=== PATIENT | female | born 1965 | race Caucasian/White ===

== ENCOUNTER 2016-04-23 12:20 | Emergency (ER) | payer OTHER ==
[~2016-04-23] VITALS: Ht 172.7 cm; Wt 86.0 kg
[2016-04-23 12:35] VITALS: BP 146/71; PULSE 68; RESP 16; TEMP 97.6; O2SAT 100
[2016-04-23] MEDS ORDERED: LORazepam 2 MG/ML VIAL IV PUSH ONE (12:45)
[2016-04-23] MEDS ORDERED: SODIUM CHLORIDE 0.9% FLUSH 5 ML FLUSH IVF PRN (12:45)
[2016-04-23 12:50] LABS: AUTOMATED NEUTROPHIL # 3.5 TH/MM3 (1.8-7.7); BASOPHIL # 0.1 TH/MM3 (0-0.2); BASOPHIL % 1.6 % (0.0-2.0); EOSINOPHIL # 0.1 TH/MM3 (0-0.4); EOSINOPHIL % 1.7 % (0.0-4.0); HEMATOCRIT 41.3 % (35.0-46.0); HEMO FLAGS DIFF FINAL; LYMPH % 39.4 % (9.0-44.0); LYMPHOCYTE # 2.7 TH/MM3 (1.0-4.8); MEAN CELL VOLUME 92.1 FL (80.0-100.0); MEAN CORPUSCULAR HGB CONC 34.7 % (32.0-36.0); MONO % 7.7 % (0.0-8.0); NEUT % 49.6 % (16.0-70.0); PLATELET COUNT 272 TH/MM3 (150-450); RED BLOOD COUNT 4.48 MIL/MM3 (4.00-5.30); RED CELL DISTRIBUTION WIDTH 11.9 % (11.6-17.2); WHITE BLOOD COUNT 6.9 TH/MM3 (4.0-11.0)
[2016-04-23] MEDS ORDERED: LEVO25TA4 PO (12:54)
[2016-04-23] MEDS ORDERED: BUPR150XL PO (12:54)
--- NOTE | 2016-04-23 12:56 | PD ---
HPI . Dizziness and confusion Chief Complaint: Neuro complaint Time Seen by Provider: 12:32 Travel History International Travel<30 days: No Contact w/Intl Traveler<30days: No Traveled to known affect area: No History of Present Illness HPI The patient presents with dizziness and confusion that started sometime between 9:30 and 10:15 AM. She states that she doesn't feel she can think straight. She states that her fingers of her left hand are tingly and she feels like she is not breathing appropriately. [facility] Past Medical History Depression: Yes Diminished Hearing: No Thyroid Disease: Yes Tetanus Vaccination: > 5 Years Influenza Vaccination: Yes ?: Not Past Surgical History Appendectomy: Yes Cholecystectomy: Yes Social History Alcohol Use: Yes (2 BEERS DAILY) Tobacco Use: Yes (1 PPD) Substance Use: No Allergies-Medications (Allergen,Severity, Reaction): Coded Allergies: No Known Allergies (Verified , 04/23/16) Reported Meds & Prescriptions Reported Meds & Active Scripts Active Reported Wellbutrin Xl 24 HR (Bupropion HCl) 150 Mg Tab 150 Mg PO DAILY Levothyroxine (Levothyroxine Sodium) 25 Mcg Tab 25 Mcg PO DAILY Review of Systems Except as stated in HPI: all other systems reviewed are Neg HENT: Positive: Lightheadedness Respiratory: Positive: Shortness of Breath Neurologic: Positive: Dizziness, Change in Mentation, Paresthesia, No: Focal Abnormalities Physical Exam Narrative GENERAL: Patient is very anxious appearing. She is tearful. SKIN: Warm and dry. HEAD: Atraumatic. Normocephalic. EYES: Pupils equal and round. Extraocular movement is intact. ENT: No nasal bleeding or discharge. Mucous membranes pink and moist. NECK: Trachea midline. Neck is supple. CARDIOVASCULAR: Regular rate and rhythm. Heart sounds are normal. RESPIRATORY: No accessory muscle use. Lungs are clear with full air movement throughout. GASTROINTESTINAL: Abdomen soft, non-tender, nondistended. MUSCULOSKELETAL: No obvious deformities. No edema. NEUROLOGICAL: Awake and alert. No facial droop. Motor grossly within normal limits. Negative Babinski. No clonus. Normal speech. PSYCHIATRIC: Anxious appearing. Data Data Last Documented VS Vital Signs Date Time Temp Pulse Resp B/P Pulse Ox O2 Delivery O2 Flow Rate FiO2 04/23/16 14:13 84 16 112/64 99 Room Air 04/23/16 12:35 97.6 Orders Electrocardiogram (04/23/16 12:32) Complete Blood Count With Diff (04/23/16 12:32) Comprehensive Metabolic Panel (04/23/16 12:32) Creatine Kinase (Cpk) (04/23/16 12:32) Troponin I (04/23/16 12:32) Urinalysis - C+S If Indicated (04/23/16 12:32) Ct Brain W/O Iv Contrast(Rout) (04/23/16 12:32) Chest, Single Ap (04/23/16 12:32) Ecg Monitoring (04/23/16 12:32) Iv Access Insert/Monitor (04/23/16 12:32) Oximetry (04/23/16 12:32) Sodium Chloride 0.9% Flush (Ns Flush) (04/23/16 12:45) Lorazepam Inj (Ativan Inj) (04/23/16 12:45) Labs Laboratory Tests Test 04/23/16 04/23/16 12:35 14:12 White Blood Count 6.9 TH/MM3 Red Blood Count 4.48 MIL/MM3 Hemoglobin 14.3 GM/DL Hematocrit 41.3 % Mean Corpuscular Volume 92.1 FL Mean Corpuscular Hemoglobin 32.0 PG Mean Corpuscular Hemoglobin 34.7 % Concent Red Cell Distribution Width 11.9 % Platelet Count 272 TH/MM3 Mean Platelet Volume 7.8 FL Neutrophils (%) (Auto) 49.6 % Lymphocytes (%) (Auto) 39.4 % Monocytes (%) (Auto) 7.7 % Eosinophils (%) (Auto) 1.7 % Basophils (%) (Auto) 1.6 % Neutrophils # (Auto) 3.5 TH/MM3 Lymphocytes # (Auto) 2.7 TH/MM3 Monocytes # (Auto) 0.5 TH/MM3 Eosinophils # (Auto) 0.1 TH/MM3 Basophils # (Auto) 0.1 TH/MM3 CBC Comment DIFF FINAL Differential Comment Sodium Level 142 MEQ/L Potassium Level 3.6 MEQ/L Chloride Level 107 MEQ/L Carbon Dioxide Level 29.4 MEQ/L Anion Gap 6 MEQ/L Blood Urea Nitrogen 9 MG/DL Creatinine 0.80 MG/DL Estimat Glomerular Filtration 73 ML/MIN Rate Random Glucose 101 MG/DL Calcium Level 8.3 MG/DL Total Bilirubin 0.8 MG/DL Aspartate Amino Transf 21 U/L (AST/SGOT) Alanine Aminotransferase 34 U/L (ALT/SGPT) Alkaline Phosphatase 83 U/L Total Creatine Kinase 65 U/L Troponin I LESS THAN 0.02 NG/ML Total Protein 7.6 GM/DL Albumin 4.1 GM/DL Urine Collection Type CLEAN CATCH Urine Color YELLOW Urine Turbidity CLEAR Urine pH 7.0 Urine Specific [place] 1.007 Urine Protein NEG mg/dL Urine Glucose (UA) NEG mg/dL Urine Ketones NEG mg/dL Urine Occult Blood NEG Urine Nitrite NEG Urine Bilirubin NEG Urine Leukocyte Esterase NEG Urine WBC 0-2 /hpf Urine Squamous Epithelial 0-5 /hpf Cells Microscopic Urinalysis Comment CULT NOT INDICATED Urine Collection Time 14:12 [facility] Medical Decision Making Medical Screen Exam Complete: Yes Emergency Medical Condition: Yes Interpretation(s) EKG shows a normal sinus rhythm. This is actually a normal EKG. She has no old EKGs for comparison. Differential Diagnosis Differential diagnosis includes but is not limited to TIA, CVA, brain tumor, migraine, anxiety Narrative Course Patient presents for evaluation and treatment of dizziness and confusion. She appears very anxious. 1 PM Patient looks appreciably better following Ativan. She also states that she feels better. CBC & BMP Diagram 04/23/16 12:35 Cardiac enzymes are normal. UA is negative. Last Impressions Head CT 04/23/16 1232 Signed Impressions: Service Date/Time: Saturday, April 23, 2016 13:25 - CONCLUSION: No acute disease. Dontae Young MD FACR Critical Care Narrative Aggregate critical care time was minutes. Time to perform other separately billable procedures was not included in the critical care time. My time did not include minutes spent treating any other patients simultaneously or on activities that did not directly contribute to the patient's treatment. The services I provided to this patient were to treat and/or prevent clinically significant deterioration due to possible stroke. I provided critical care services requiring my management, as noted below: Chart data review, documentation time, medication orders and management, vital sign assessments/reviewing monitor data, ordering and reviewing lab tests, ordering and interpreting/reviewing x-rays and diagnostic studies, care of the patient and discussion of the patient with the admitting physicians Diagnosis Primary Impression: Paresthesia of left arm Additional Impressions: Dizziness Anxiety Patient Instructions: Dizziness (ED), General Instructions Disposition: 01 DISCHARGE HOME Condition: Stable Oeters,Andria Elizabeth MD Apr 23, 2016 12:56
[2016-04-23 13:02] LABS: CHLORIDE 107 MEQ/L (98-107); POTASSIUM 3.6 MEQ/L (3.5-5.1); SODIUM (NA) 142 MEQ/L (136-145)
[2016-04-23 13:06] LABS: ANION GAP 6 MEQ/L (5-15); BICARBONATE 29.4 MEQ/L (21.0-32.0); BLOOD UREA NITROGEN 9 MG/DL (7-18)
[2016-04-23 13:09] LABS: ALT (GPT) 34 U/L (10-53); AST (GOT) 21 U/L (15-37); GLOMERULAR FILTRATION RATE 73 ML/MIN (>89)
[2016-04-23 13:10] LABS: TOTAL BILIRUBIN ADULT 0.8 MG/DL (0.2-1.0)
[2016-04-23 13:12] LABS: ALKALINE PHOSPHATASE 83 U/L (45-117)
[2016-04-23 13:28] LABS: CREATINE KINASE 65 U/L (26-192)
--- NOTE | 2016-04-23 13:50 | RADHPO ---
EXAM DATE/TIME: 04/23/2016 12:47 [facility] COMPARISON: No previous studies available for comparison. INDICATIONS: Dizziness, left arm tingling, short of breath. MEDICAL HISTORY: None. SURGICAL HISTORY: Appendectomy. Cholecystectomy. ENCOUNTER: Initial ACUITY: 1 day PAIN SCORE: 0/10 LOCATION: Chest FINDINGS: Minimal pulmonary vascular congestion is noted bilaterally. The heart is normal. Degenerative sneed es and scoliosis of the thoracic spine are noted. no focal alveolar consolidation is noted. CONCLUSION: 1. Minimal congestion bilaterally. 2. Degenerative changes and scoliosis of the thoracic spine. Eusebio Richards MD on April 23, 2016 at 13:43 Board Certified Radiologist. This report was verified electronically.
--- NOTE | 2016-04-23 13:53 | RADHPO ---
EXAM DATE/TIME: 04/23/2016 13:25 [facility] COMPARISON: No previous studies available for comparison. INDICATIONS : Left upper extremity tingling and dizziness. RADIATION DOSE: 56.67 CTDIvol (mGy) MEDICAL HISTORY : None SURGICAL HISTORY : Appendectomy. Cholecystectomy. ENCOUNTER: Initial ACUITY: 1 day PAIN SCALE: 0/10 LOCATION: cranial TECHNIQUE: Multiple contiguous axial images were obtained of the head. Using automated exposure control and adj ustment of the mA and/or kV according to patient size, radiation dose was kept as low as reasonably a chievable to obtain optimal diagnostic quality images. FINDINGS: CEREBRUM: The ventricles are normal for age. No evidence of midline shift, mass lesion, hemorrhage or acute in farction. No extra-axial fluid collections are seen. POSTERIOR FOSSA: The cerebellum and brainstem are intact. The 4th ventricle is midline. The cerebellopontine angle i s unremarkable. EXTRACRANIAL: The visualized portion of the orbits is intact. SKULL: The calvaria is intact. No evidence of skull fracture. CONCLUSION: No acute disease. Dontae Young MD FACR on April 23, 2016 at 13:52 Board Certified Radiologist. This report was verified electronically.
[2016-04-23 14:13] VITALS: BP 112/64; PULSE 84; RESP 16; O2SAT 99
[2016-04-23 14:17] LABS: BLOOD, URINE NEG (NEG); GLUCOSE,URINE NEG (NEG); KETONE, URINE NEG (NEG); NITRITE,URINE NEG (NEG)
[2016-04-23 14:42] LABS: COMMENT (UR) CULT NOT INDICATED; CULTURE IF INDICATED CULT NOT INDICATED; METHOD OF COLLECTION CLEAN CATCH; SQUAMOUS EPITHELIAL CELL URINE 0-5 /hpf (0-5); URINE COLOR YELLOW (YELLW/STRAW); WBC, URINE 0-2 /hpf (0-5)
--- NOTE | 2016-04-23 15:17 | EKG ---
Date Performed: 04/23/2016 Time Performed: 12:40:26 PTAGE: 61 years EKG: Sinus rhythm Normal ECG NO PREVIOUS TRACING DOCTOR: Ambrose Gomez Interpretating Date/Time 04/23/2016 15:16:51
[2016-04-23 15:49] VITALS: BP 105/57
== END 2016-04-23 15:56 | disposition home or self-care (01) ==
LOC: PHED 12:20 → EDBD 12:20 → PHED 15:56
DX: R20.2 Paresthesia of skin (principal); R42 Dizziness and giddiness; F41.9 Anxiety disorder, unspecified; F32.9 Major depressive disorder, single episode, unspecified; F17.210 Nicotine dependence, cigarettes, uncomplicated
CPT/HCPCS: 70450; 71010; 80053; 81001; 82550; 84484; 85025; 93005; J2060; 96374